=== PATIENT | female | born 1950 | race Caucasian/White ===

== ENCOUNTER 2019-08-27 01:51 | Inpatient (IN) ==
[2019-08-27] MEDS ORDERED: HYDROmorphone INJ 1 MG/ML SYRINGE IV STA ×2 (01:55→02:44)
[2019-08-27] MEDS ORDERED: SODIUM CHLORIDE 0.9% 1000ML 1,000 ML IV ONE ×2 (01:55→02:44)
--- NOTE | 2019-08-27 02:00 | Emergency Department Note ---
Impression & Plan Cecal volvulus, Lactic acidosis, Hypokalemia ED Provider Note Name: AMBER GOLDEN Age: 68 Sex: F Arrives Via: Ambulance Informant: Patient, EMS ED Provider: Quinn Macedo MD Chief Complaint: Abdominal Pain Impression: Lactic Acidosis Cecal Volvulus Hypokalemia Medical Decision Makin yr old female with limited PMH of gerd and gastroparesis who's had no previous surgeries arrives for acute sudden onset diffuse abdominal pain. 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 Dilaudid IV with improvement and taken emergently to CT. CT reveals acute Cecal Volvulus with concerns for early ischemia which is further concerning given elevated lactic acid and the amount of pain she is having. Given further IV dilaudid and fluids and Gen Surg consulted who were shortly at bedside. She was kept comfortable while awaiting OR team and further hydration and IV K given for repletion of mild hypokalemia. I will note EKG without ischemia and trop normal. Prior Medical Record and Triage/Nursing Notes reviewed by Me Additional history obtained from daughter/ Differentials:SBO, Perforated Viscus, Diverticulitis, Volvulus, Pancreatitis, Ischemia, Aortic dissection/rupture, renal colic, appendicitis, as well as other pathologies. Vital Signs: reviewed and remarkable for HTN Interventions: saline lock, dilaudid IV (multiple doses), Zofran 4mg IV, NSS bolus, Potassium 20meq IV, Labs:Reviewed and remarkable for elevated lactate Imaging:[facility] Radiologist interpretation reviewed by me: CT abdo pelv w iv contrast, acute cecal volvulus EKG:Per My Interpretation: Indication Abdominal pain: Sinus Teo 57 bpm, qtc 426. No Ectopy. No Ischemia. No previous for comparison Cardiac/Tele Monitoring: Cardiac Monitoring: An Order was placed for continuous cardiac monitoring. The monitor shows a rate of 70 with a normal sinus rhythm. Consults:Dr Castaneda Gen Surg - will take to OR Plan: Disposition:Taken to OR Referred to: PCP Condition: Fair Blood pressure:Elevated - [place] to be Situational. Prescriptions:none PDMP: n/a History of Present Illness:68 / F arrives for evaluation of abdominal pain. 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 Radiates throughout abdomen, to back and to epigastrium. Associated nausea and vomiting. No diarrhea. Last BM 2 days ago, normal. No fevers, chills, cp, sob, urinary symptoms, bowel changes, leg pain/swelling, rashes, headache, neck pain nor ot her symptoms. Asa, Fentanyl IV and Zofran IV by EMS without improvement. History gastroparesis though never had symptoms like this before. No previous abdominal surgeries. No recent trauma. Movement makes worse, nothing makes pain better. Admits increased stress today though nothing else out of ordinary. ROS: See above HPI for pertinent positives & negatives. A total of 10 systems reviewed and were otherwise negative. Past Medical History:Gastroparesis Past Surgical History:None Family History:Father Pancreatic Cancer, Mother Diverticulitis Social History:Retired, , non-smoker, occassional etoh, no drugs Home Medications:none Allergies:pnc, bactrim Vitals:Blood Pressure: 179/109, Pulse 67, RR 18, T 36.4C, O2 100% on RA Physical Exam: GENERAL: Patient is very uncomfortable appearing and in moderate distress. EYES: No scleral icterus, unremarkable pupils. ENT: Mucous membranes moist, no nasal congestion. NECK: No masses appreciated, nomeningismus, trachea is midline. RESPIRATORY: No dyspnea. Clear to auscultation and equal bilaterally. No wheeze, no rhonchi. CARDIOVASCULAR: Regular rate and rhythm.No murmurs, rubs, gallops appreciated. GASTROINTESTINAL: Diffuse mid TTP, otherwise Abdomen soft.Bowel sounds positive.No masses appreciated. BACK: No midline tenderness, no CVA tenderness EXTREMITIES: Normal motion all extremities, no cyanosis, no edema. NEUROLOGIC: Alert and oriented, no acute motor or sensory deficits, no focal weakness, cranial nerves grossly intact. SKIN: No rash, no jaundice, no diaphoresis. PSYCH: Appropriate GCS: 15 ED Course: Times/Reassessments: Multiple evals, discussed with /daughter, gradually improving pain with multiple iv narcotics Quinn Macedo MD Past Med/Surg History Medical History (Updated 08/27/19 @ 05:47 by Marino Dhaliwal MD) Cecal volvulus (Acute) Gastroparesis GERD (gastroesophageal reflux disease) [place] (hard of hearing) wears bilateral hearing aids Hypokalemia Surgical History S/P cataract extraction bilateral S/P tonsillectomy Family History Other Diverticulitis Social History (Updated 08/27/19 @ 04:00 by Mahamed Castaneda MD) Feels Safe at Home: Yes Smoking Status: Never smoker Hx Alcohol Use: Yes (once per week) Allergies Allergies Allergy/AdvReac Type Severity Reaction Status Date / Time Penicillins Allergy Mild Rash Unverified 08/27/19 02:42 sulfamethoxazole Allergy Hallucinati Unverified 08/27/19 02:42 [From Bactrim] ng trimethoprim [From Bactrim] Allergy Hallucinati Unverified 08/27/19 02:42 ng Home Meds Home Medications Medication Instructions Recorded Confirmed linaclotide [Linzess] 72 mcg PO DAILY 08/27/19 08/27/19 omeprazole 20 mg PO DAILY 08/27/19 08/27/19 Results & Data (ED) Vital Signs Vital Signs - 24 hr 08/27/19 02:02 08/27/19 02:05 08/27/19 02:30 Temperature 36.4 C L Temperature Source Oral Pulse Rate 65 67 57 L Pulse Rate from SpO2 Sensor 63 58 L Pulse Rhythm Regular Pulse Strength Normal Respiratory Rate 25 H 18 22 Respiratory Effort / Characteristics Non-Labored Spontaneous Respiratory Depth Normal Respiratory Pattern Regular Blood Pressure 179/109 H 179/109 H 167/119 H Blood Pressure Mean 131 132 145 Blood Pressure Position Lying Pulse Oximetry 100 100 100 Oxygen Delivery Method Room Air Sepsis Recent Fever Within 48 Hours No Sepsis New/Unexplained Change in Mental Status No Sepsis Action Taken by Nursing No Action Required Oxygen Flow Rate - Titration Pulse Oximetry Post Tiitration 08/27/19 03:00 08/27/19 03:12 08/27/19 03:30 Temperature Temperature Source Pulse Rate 65 71 Pulse Rate from SpO2 Sensor 62 66 Pulse Rhythm Pulse Strength Respiratory Rate 20 14 Respiratory Effort / Characteristics Respiratory Depth Respiratory Pattern Blood Pressure 187/92 H 170/86 H Blood Pressure Mean 108 107 Blood Pressure Position Pulse Oximetry 99 82 L 100 Oxygen Delivery Method Room Air Sepsis Recent Fever Within 48 Hours Sepsis New/Unexplained Change in Mental Status Sepsis Action Taken by Nursing Oxygen Flow Rate - Titration 2 Pulse Oximetry Post Tiitration 99 08/27/19 04:01 08/27/19 04:30 08/27/19 05:00 Temperature Temperature Source Pulse Rate 63 57 L 60 Pulse Rate from SpO2 Sensor 65 57 L 61 Pulse Rhythm Pulse Strength Respiratory Rate 20 18 15 Respiratory Effort / Characteristics Respiratory Depth Respiratory Pattern Blood Pressure 158/78 H 151/86 H 176/82 H Blood Pressure Mean 110 106 101 Blood Pressure Position Pulse Oximetry 98 100 99 Oxygen Delivery Method Sepsis Recent Fever Within 48 Hours Sepsis New/Unexplained Change in Mental Status Sepsis Action Taken by Nursing Oxygen Flow Rate - Titration Pulse Oximetry Post Tiitration Laboratory Data Result diagrams: 08/27/19 01:50 08/27/19 01:50 Lab Results 08/27/19 08/27/19 08/27/19 Range/Units 01:50 01:50 01:50 WBC 8.72 (4.8-10.8) K/uL RBC 4.11 L (4.2-5.4) M/uL Hgb 12.2 (12.0-16.0) g/dL POC Hgb (12.0-16.0) g/dl Hct 37.0 (37-47) % POC Hct (37-47) % MCV 90.0 (80-100) fL MCH 29.7 (25-34) pg MCHC 33.0 (32-36) g/dL RDW Std Deviation 42.8 (36.4-46.3) fL RDW Coeff of Muna 13.0 (11.5-14.5) % Plt Count 343 (130-400) K/uL MPV 9.5 (7.4-10.4) fL Immature Gran % (Auto) 0.2 % Neut % (Auto) 49.9 % Lymph % (Auto) 41.2 % [place] % (Auto) 6.0 % Eos % (Auto) 2.4 % Baso % (Auto) 0.3 % Immature Gran # (Auto) 0.02 (0.00-0.02) K/uL Neut # (Auto) 4.35 (1.4-6.5) K/uL Lymph # (Auto) 3.59 H (1.2-3.4) K/uL [place] # (Auto) 0.52 (0.11-0.59) K/uL Eos # (Auto) 0.21 (0-0.5) K/uL Baso # (Auto) 0.03 (0-0.2) K/uL PT 11.0 (9.0-12.0) Seconds INR 1.0 (0.9-1.1) APTT 22.5 (21.0-31.0) Seconds PTT Ratio 0.8 POC Sodium (135-144) mmol/L Sodium 142 (136-145) mmol/L POC Potassium (3.3-5.0) mmol/L Potassium 2.8 L (3.5-5.1) mmol/L POC Chloride (101-112) mmol/L Chloride 107 (98-107) mmol/L Carbon Dioxide 23 (21-32) mmol/L POC Total CO2 (24-31) mmol/L Anion Gap 12.0 H (3-11) POC Anion Gap (16-25) mmol/L POC BUN (7-18) mg/dl BUN 16 (7-18) mg/dl Creatinine 0.98 (0.6-1.2) mg/dl POC Creatinine (0.6-1.3) mg/dl Est Cr Clr Drug Dosing 53.9 ml/min Est GFR ( Amer) 67.7 Est GFR (Non-Af Amer) 58.4 BUN/Creatinine Ratio 16.4 (10-20) Glucose 179 H (70-99) mg/dl POC Glucose (other) (70-99) mg/dl POC Lactic Acid Dwight (0.90-1.70) mmol/L Calcium 9.8 (8.5-10.1) mg/dl POC Ioniz Calcium Janet (1.12-1.32) mmol/l Total Bilirubin 0.4 (0.2-1) mg/dl Direct Bilirubin < 0.1 (0-0.2) mg/dl AST 23 (15-37) U/L ALT 29 (12-78) U/L Alkaline Phosphatase 84 (45-117) U/L Troponin I < 0.015 (0-0.045) ng/ml Total Protein 7.9 (6.4-8.2) gm/dl Albumin 4.2 (3.4-5.0) gm/dl Lipase 210 (73-393) U/L 08/27/19 08/27/19 Range/Units 01:57 02:43 WBC (4.8-10.8) K/uL RBC (4.2-5.4) M/uL Hgb (12.0-16.0) g/dL POC Hgb 12.6 (12.0-16.0) g/dl Hct (37-47) % POC Hct 37 (37-47) % MCV (80-100) fL MCH (25-34) pg MCHC (32-36) g/dL RDW Std Deviation (36.4-46.3) fL RDW Coeff of Muna (11.5-14.5) % Plt Count (130-400) K/uL MPV (7.4-10.4) fL Immature Gran % (Auto) % Neut % (Auto) % Lymph % (Auto) % [place] % (Auto) % Eos % (Auto) % Baso % (Auto) % Immature Gran # (Auto) (0.00-0.02) K/uL Neut # (Auto) (1.4-6.5) K/uL Lymph # (Auto) (1.2-3.4) K/uL [place] # (Auto) (0.11-0.59) K/uL Eos # (Auto) (0-0.5) K/uL Baso # (Auto) (0-0.2) K/uL PT (9.0-12.0) Seconds INR (0.9-1.1) APTT (21.0-31.0) Seconds PTT Ratio POC Sodium 141 (135-144) mmol/L Sodium (136-145) mmol/L POC Potassium 2.7 L (3.3-5.0) mmol/L Potassium (3.5-5.1) mmol/L POC Chloride 105 (101-112) mmol/L Chloride (98-107) mmol/L Carbon Dioxide (21-32) mmol/L POC Total CO2 20 L (24-31) mmol/L Anion Gap (3-11) POC Anion Gap 20.0 (16-25) mmol/L POC BUN 15 (7-18) mg/dl BUN (7-18) mg/dl Creatinine (0.6-1.2) mg/dl POC Creatinine 0.6 (0.6-1.3) mg/dl Est Cr Clr Drug Dosing ml/min Est GFR ( Amer) Est GFR (Non-Af Amer) BUN/Creatinine Ratio (10-20) Glucose (70-99) mg/dl POC Glucose (other) 182 H (70-99) mg/dl POC Lactic Acid Dwight 3.37 H (0.90-1.70) mmol/L Calcium (8.5-10.1) mg/dl POC Ioniz Calcium Janet 1.17 (1.12-1.32) mmol/l Total Bilirubin (0.2-1) mg/dl Direct Bilirubin (0-0.2) mg/dl AST (15-37) U/L ALT (12-78) U/L Alkaline Phosphatase (45-117) U/L Troponin I (0-0.045) ng/ml Total Protein (6.4-8.2) gm/dl Albumin (3.4-5.0) gm/dl Lipase (73-393) U/L Administered Medications Potassium Chloride (K Carlos / Wtr) 10 meq in 100 mls @ 100 mls/hr IV Q1H CECILE Stop: 08/27/19 06:14 Last Admin: 08/27/19 05:22 Dose: 100 mls/hr Documented by: [id number] Infusion: 08/27/19 05:22 Dose: 100 mls/hr Documented by: [id number] Admin: 08/27/19 04:25 Dose: 100 mls/hr Documented by: [id number] Sodium Chloride (Nss 1000ml) 1,000 mls @ 125 mls/hr IV .Q8H CECILE Stop: 09/26/19 04:14 Last Admin: 08/27/19 04:28 Dose: 125 mls/hr Documented by: [id number] Ioversol (Optiray 320 100ml) 93 ml IV ONCE PRN PRN Reason: Interaction Checking Stop: 08/31/19 02:27 Last Admin: 08/27/19 02:28 Dose: 93 ml Documented by: [id number] Discontinued Medications Hydromorphone HCl (Dilaudid) 1 mg IV NOW STA Stop: 08/27/19 01:56 Last Admin: 08/27/19 02:05 Dose: 1 mg Documented by: [id number] Hydromorphone HCl (Dilaudid) 1 mg IV NOW STA Stop: 08/27/19 02:45 Last Admin: 08/27/19 02:55 Dose: 1 mg Documented by: [id number] Hydromorphone HCl (Dilaudid) 0.5 mg IV NOW STA Stop: 08/27/19 04:20 Last Admin: 08/27/19 04:24 Dose: 0.5 mg Documented by: [id number] Sodium Chloride (Nss 1000ml) 1,000 mls @ 999 mls/hr IV .Q1H1M ONE Stop: 08/27/19 02:55 Last Infusion: 08/27/19 03:02 Dose: 0 mls/hr Documented by: [id number] Admin: 08/27/19 02:05 Dose: 999 mls/hr Documented by: [id number] Sodium Chloride (Nss 1000ml) 1,000 mls @ 999 mls/hr IV .Q1H1M ONE Stop: 08/27/19 03:44 Last Infusion: 08/27/19 04:25 Dose: 0 mls/hr Documented by: [id number] Admin: 08/27/19 02:55 Dose: 999 mls/hr Documented by: [id number] Ondansetron HCl (Zofran) 4 mg IV NOW STA Stop: 08/27/19 02:45 Last Admin: 08/27/19 02:55 Dose: 4 mg Documented by: [id number] Ondansetron HCl (Zofran) 4 mg IV NOW STA Stop: 08/27/19 04:20 Last Admin: 08/27/19 04:23 Dose: 4 mg Documented by: [id number] Discharge Plan Visit Data *Final* Discharge Date/Time: 08/27/19 05:28 Chief Complaint: Abdominal Pain Stated Complaint: Abdominal Pain ED Provider: Quinn Macedo Discharge Problem: Cecal volvulus, Lactic acidosis, Hypokalemia Patient Disposition: Still a Patient Discharge Instructions Interventions: ED Discharge Assessment Last Done: 08/27/19 05:28
[2019-08-27 02:07] LABS: Basophils # (auto) 0.03 K/uL (0-0.2); Basophils % (auto) 0.3 %; Eosinophils # (auto) 0.21 K/uL (0-0.5); Eosinophils % (auto) 2.4 %; Hemoglobin 12.2 g/dL (12.0-16.0); Immature Granulocytes # (auto) 0.02 K/uL (0.00-0.02); Immature Granulocytes % (auto) 0.2 %; Lymphocytes # (auto) 3.59 K/uL (1.2-3.4); Lymphocytes % (auto) 41.2 %; Mean Corpuscular Hemoglobin 29.7 pg (25-34); Mean Platelet Volume 9.5 fL (7.4-10.4); Monocytes # (auto) 0.52 K/uL (0.11-0.59); Neutrophils # (auto) 4.35 K/uL (1.4-6.5); Neutrophils % (auto) 49.9 %; Platelet Count 343 K/uL (130-400); RDW Standard Deviation 42.8 fL (36.4-46.3); Red Blood Count 4.11 M/uL (4.2-5.4); White Blood Count 8.72 K/uL (4.8-10.8)
[2019-08-27 02:09] LABS: iSTAT Creatinine 0.6 mg/dl (0.6-1.3); iSTAT Hemoglobin 12.6 g/dl (12.0-16.0); iSTAT Ionized Calcium 1.17 mmol/l (1.12-1.32); iSTAT Potassium 2.7 mmol/L (3.3-5.0)
[2019-08-27 02:25] LABS: Albumin Level 4.2 gm/dl (3.4-5.0); BUN Creatinine Ratio 16.4 (10-20); Bilirubin Direct < 0.1 mg/dl (0-0.2); Blood Urea Nitrogen 16 mg/dl (7-18); Calcium 9.8 mg/dl (8.5-10.1); Carbon Dioxide 23 mmol/L (21-32); Chloride 107 mmol/L (98-107); Creatinine Clr Calc Pharmacy 53.9 ml/min; Est GFR (African American) 67.7; Est GFR (Non-African American) 58.4; Glucose 179 mg/dl (70-99); Lipase 210 U/L (73-393); Potassium 2.8 mmol/L (3.5-5.1); Sodium 142 mmol/L (136-145)
[2019-08-27] MEDS ORDERED: IOVERSOL 100ml IV PRN (02:28)
[2019-08-27 02:30] LABS: Alanine Aminotransferase 29 U/L (12-78); Alkaline Phosphatase 84 U/L (45-117); Aspartate Aminotransferase 23 U/L (15-37); Bilirubin,Total 0.4 mg/dl (0.2-1); Total Protein 7.9 gm/dl (6.4-8.2); Troponin I < 0.015 ng/ml (0-0.045)
[2019-08-27] MEDS ORDERED: ONDANSETRON INJ 2 MG/ML 2 ML VIAL IV STA ×2 (02:44→04:19)
[2019-08-27] MEDS ORDERED: SODIUM CHLORIDE 0.9% 1000ML 1,000 ML IV SCH (04:15)
[2019-08-27] MEDS ORDERED: HYDROmorphone INJ 0.5 MG/0.5 ML SYR IV STA (04:19)
[2019-08-27] MEDS: POTASSIUM CHLORIDE / WTR 10 MEQ/100 ML PLCT IV SCH ×2 (04:25→05:22)
--- NOTE | 2019-08-27 04:41 | History & Physical Report ---
Date of Service August 27, 2019 Assessment & Plan (1) Cecal volvulus: This patient has abdominal pain with nausea and vomiting. Her abdomen is distended and tender. CT scan demonstrates the cecum in the right upper quadrant with swirling and intra-abdominal fluid with an elevated lactate level which is all concerning for cecal volvulus with ischemia. Her white blood cell count is normal. Her abdomen is tender and firm consistent with peritonitis. I have recommended exploratory laparotomy with right colectomy for the cecal volvulus. I explained the procedure to the patient. Her daughter was present as well. I explained the possible complications and answered her questions. She has signed a consent form. History of Present Illness Chief Complaint: Abdominal pain with nausea and vomiting Primary Care Provider: Marguerite Gonzalez DO This is a 68-year-old female who presented to the emergency room after the fairly acute onset of abdominal pain followed by nausea and vomiting. The patient states that she has a history of gastroparesis and yesterday evening had some mild epigastric discomfort. She is on an H2 luis chronically. At 11 PM last night she developed rather acute onset of more severe sharp abdominal pain. This was followed by multiple episodes of vomiting. She had diaphoresis with the vomiting. The pain persisted and she was brought to the emergency room by ambulance. While here she continued to have severe abdominal pain generalized throughout. There was no place to predominated. The nausea persisted. She normally has no issues with passing her bowels. She had no melena or hematochezia. She is never had pain like this before. Movement exacerbates the pain. She has had no dysuria or hematuria. CT scan of the abdomen and pelvis revealed cecal volvulus. Allergies Allergy/AdvReac Type Severity Reaction Status Date / Time Penicillins Allergy Mild Rash Unverified 08/27/19 02:42 sulfamethoxazole Allergy Hallucinati Unverified 08/27/19 02:42 [From Bactrim] ng trimethoprim [From Bactrim] Allergy Hallucinati Unverified 08/27/19 02:42 ng Home Medications Home Medications Medication Instructions Recorded Confirmed Type linaclotide [Linzess] 72 mcg PO DAILY 08/27/19 08/27/19 History omeprazole 20 mg PO DAILY 08/27/19 08/27/19 History Past Med/Surg History Medical History (Updated 08/27/19 @ 04:43 by Mahamed Castaneda MD) Cecal volvulus Surgical History (Updated 08/27/19 @ 03:59 by Mahamed Castaneda MD) S/P cataract extraction bilateral S/P tonsillectomy Social History (Updated 08/27/19 @ 04:00 by Mahamed Castaneda MD) Feels Safe at Home: Yes Smoking Status: Never smoker Hx Alcohol Use: Yes (once per week) Review of Systems Review of Systems: All systems reviewed & are unremarkable except as noted in HPI & below Physical Exam Constitutional: + ill appearing Neck: trachea midline Respiratory: normal respiratory effort, lungs clear to auscultation Cardiovascular: Rate/Rhythm: regular rate and regular rhythm Gastrointestinal (Abdomen): Inspection/Auscultation: + abdomen distended (Mild) and normal bowel sounds Percussion/Palpation: + abdomen tender (Throughout to moderate palpation) Abdomen is firm but not rigid Skin: no rashes, warm and dry Lymphatic: no cervical lymphadenopathy Results & Data Results & Data ([facility]) Vital Signs (Past 12 Hours) Vital Signs Temp Pulse Resp BP Pulse Ox 08/27/19 03:30 71 14 170/86 H 100 08/27/19 03:12 82 L 08/27/19 03:00 65 20 187/92 H 99 08/27/19 02:30 57 L 22 167/119 H 100 08/27/19 02:05 36.4 C L 67 18 179/109 H 100 08/27/19 02:02 65 25 H 179/109 H 100 Laboratory Results 08/27/19 08/27/19 08/27/19 Range/Units 02:43 01:57 01:50 WBC (4.8-10.8) K/uL RBC (4.2-5.4) M/uL Hgb (12.0-16.0) g/dL POC Hgb 12.6 (12.0-16.0) g/dl Hct (37-47) % POC Hct 37 (37-47) % MCV (80-100) fL MCH (25-34) pg MCHC (32-36) g/dL RDW Std Deviation (36.4-46.3) fL RDW Coeff of Muna (11.5-14.5) % Plt Count (130-400) K/uL MPV (7.4-10.4) fL Immature Gran % (Auto) % Neut % (Auto) % Lymph % (Auto) % [place] % (Auto) % Eos % (Auto) % Baso % (Auto) % Immature Gran # (Auto) (0.00-0.02) K/uL Neut # (Auto) (1.4-6.5) K/uL Lymph # (Auto) (1.2-3.4) K/uL [place] # (Auto) (0.11-0.59) K/uL Eos # (Auto) (0-0.5) K/uL Baso # (Auto) (0-0.2) K/uL PT Pending INR Pending APTT Pending PTT Ratio Pending POC Sodium 141 (135-144) mmol/L Sodium (136-145) mmol/L POC Potassium 2.7 L (3.3-5.0) mmol/L Potassium (3.5-5.1) mmol/L POC Chloride 105 (101-112) mmol/L Chloride (98-107) mmol/L Carbon Dioxide (21-32) mmol/L POC Total CO2 20 L (24-31) mmol/L Anion Gap (3-11) POC Anion Gap 20.0 (16-25) mmol/L POC BUN 15 (7-18) mg/dl BUN (7-18) mg/dl Creatinine (0.6-1.2) mg/dl POC Creatinine 0.6 (0.6-1.3) mg/dl Est Cr Clr Drug Dosing ml/min Est GFR ( Amer) Est GFR (Non-Af Amer) BUN/Creatinine Ratio (10-20) Glucose (70-99) mg/dl POC Glucose (other) 182 H (70-99) mg/dl POC Lactic Acid Dwight 3.37 H (0.90-1.70) mmol/L Calcium (8.5-10.1) mg/dl POC Ioniz Calcium Janet 1.17 (1.12-1.32) mmol/l Total Bilirubin (0.2-1) mg/dl Direct Bilirubin (0-0.2) mg/dl AST (15-37) U/L ALT (12-78) U/L Alkaline Phosphatase (45-117) U/L Troponin I (0-0.045) ng/ml Total Protein (6.4-8.2) gm/dl Albumin (3.4-5.0) gm/dl Lipase (73-393) U/L 08/27/19 08/27/19 Range/Units 01:50 01:50 WBC 8.72 (4.8-10.8) K/uL RBC 4.11 L (4.2-5.4) M/uL Hgb 12.2 (12.0-16.0) g/dL POC Hgb (12.0-16.0) g/dl Hct 37.0 (37-47) % POC Hct (37-47) % MCV 90.0 (80-100) fL MCH 29.7 (25-34) pg MCHC 33.0 (32-36) g/dL RDW Std Deviation 42.8 (36.4-46.3) fL RDW Coeff of Muna 13.0 (11.5-14.5) % Plt Count 343 (130-400) K/uL MPV 9.5 (7.4-10.4) fL Immature Gran % (Auto) 0.2 % Neut % (Auto) 49.9 % Lymph % (Auto) 41.2 % [place] % (Auto) 6.0 % Eos % (Auto) 2.4 % Baso % (Auto) 0.3 % Immature Gran # (Auto) 0.02 (0.00-0.02) K/uL Neut # (Auto) 4.35 (1.4-6.5) K/uL Lymph # (Auto) 3.59 H (1.2-3.4) K/uL [place] # (Auto) 0.52 (0.11-0.59) K/uL Eos # (Auto) 0.21 (0-0.5) K/uL Baso # (Auto) 0.03 (0-0.2) K/uL PT INR APTT PTT Ratio POC Sodium (135-144) mmol/L Sodium 142 (136-145) mmol/L POC Potassium (3.3-5.0) mmol/L Potassium 2.8 L (3.5-5.1) mmol/L POC Chloride (101-112) mmol/L Chloride 107 (98-107) mmol/L Carbon Dioxide 23 (21-32) mmol/L POC Total CO2 (24-31) mmol/L Anion Gap 12.0 H (3-11) POC Anion Gap (16-25) mmol/L POC BUN (7-18) mg/dl BUN 16 (7-18) mg/dl Creatinine 0.98 (0.6-1.2) mg/dl POC Creatinine (0.6-1.3) mg/dl Est Cr Clr Drug Dosing 53.9 ml/min Est GFR ( Amer) 67.7 Est GFR (Non-Af Amer) 58.4 BUN/Creatinine Ratio 16.4 (10-20) Glucose 179 H (70-99) mg/dl POC Glucose (other) (70-99) mg/dl POC Lactic Acid Dwight (0.90-1.70) mmol/L Calcium 9.8 (8.5-10.1) mg/dl POC Ioniz Calcium Janet (1.12-1.32) mmol/l Total Bilirubin 0.4 (0.2-1) mg/dl Direct Bilirubin < 0.1 (0-0.2) mg/dl AST 23 (15-37) U/L ALT 29 (12-78) U/L Alkaline Phosphatase 84 (45-117) U/L Troponin I < 0.015 (0-0.045) ng/ml Total Protein 7.9 (6.4-8.2) gm/dl Albumin 4.2 (3.4-5.0) gm/dl Lipase 210 (73-393) U/L Diagnostic Findings CT scan of the abdomen and pelvis reveals the cecum to be located in the left upper quadrant and is dilated at 10.6 cm with swirling of the mesentery in the right lower quadrant consistent with volvulus. There is some fluid in the pelvis. There is no free air and no evidence of pneumatosis
[2019-08-27] MEDS ORDERED: fentaNYL citrate 100 MCG/2 ML VIAL ONE ×2 (05:12→08:30)
[2019-08-27] MEDS ORDERED: PROPOFOL IV EMULSION 10 MG/ML 20 ML VIAL IV ONE (05:12)
[2019-08-27 05:15] LABS: Partial Thromboplastin Ratio 0.8; Partial Thromboplastin Time 22.5 Seconds (21.0-31.0)
[2019-08-27] MEDS ORDERED: SUCCINYLCHOLINE CHLORIDE 20 MG/ML 10 ML VIAL IV ONE (05:17)
[2019-08-27] MEDS ORDERED: ROCURONIUM BROMIDE 10 MG/ML 5 ML VIAL IV ONE (05:18)
[2019-08-27] MEDS ORDERED: LIDOCAINE HCL 2% 2 ML VIAL/AMP(20MG/ML) INFIL ONE (05:20)
[2019-08-27] MEDS ORDERED: PHENYLEPHRINE 100MCG/ML 5ML SYR IV PRN (05:26)
[2019-08-27] MEDS ORDERED: ATROPINE SULFATE 0.1 MG/ML 10ML SYR IV PRN (05:26)
[2019-08-27] MEDS ORDERED: fentaNYL citrate 100 MCG/2 ML VIAL IV PRN (05:26)
[2019-08-27] MEDS ORDERED: ePHEDrine sulfate 50 MG/ML AMP IV PRN (05:26)
[2019-08-27] MEDS ORDERED: ONDANSETRON INJ 2 MG/ML 2 ML VIAL IV PRN (05:26)
[2019-08-27] MEDS ORDERED: HYDROmorphone INJ 1 MG/ML SYRINGE IV PRN (05:26)
[2019-08-27] MEDS ORDERED: LABETALOL HCL IV 5 MG/ML 20ML IV PRN (05:26)
[2019-08-27] MEDS ORDERED: MEPERIDINE HCL 25 MG/ML CARP/VIAL IV PRN (05:26)
--- NOTE | 2019-08-27 05:36 | Anesthesiology Consultation ---
Date of Service August 27, 2019 Patient was not tested for Covid 19. She has no known exposure to Covid 19. She has no cough or fever. A nasogastric was placed in the ER. The patient was found to be hypokalemic. She received 10 mEq of potassium IV in the ER and is currently receiving a second 10 mEq of potassium IV. Assessment & Plan (1) Encounter for pre-operative examination: Chart Review Chart Review: Acceptable Risk for Surgery (emergency surgery) and Patient NOT seen in Pre Admission Testing Consults Requested none History Surgery Operation Date: 08/27/19 05:30 Proposed Procedures p Bowel Resection - Mahamed Castaneda MD Height/Weight Height: 5 ft 8 in Weight: 73.9 kg Allergies Allergy/AdvReac Type Severity Reaction Status Date / Time Penicillins Allergy Mild Rash Unverified 08/27/19 02:42 sulfamethoxazole Allergy Hallucinati Unverified 08/27/19 02:42 [From Bactrim] ng trimethoprim [From Bactrim] Allergy Hallucinati Unverified 08/27/19 02:42 ng Medications Home Medications Medication Instructions Recorded Confirmed Last Taken linaclotide [Linzess] 72 mcg PO DAILY 08/27/19 08/27/19 Unknown omeprazole 20 mg PO DAILY 08/27/19 08/27/19 Unknown Active Medications Generic Name Dose Route Start Last Admin Trade Name Freq PRN Reason Stop Dose Admin Potassium Chloride 10 meq in 100 mls @ 100 mls/hr 08/27/19 04:15 08/27/19 05:22 K Carlos / Wtr IV 08/27/19 06:14 100 mls/hr Q1H CECILE Administration Sodium Chloride 1,000 mls @ 125 mls/hr 08/27/19 04:15 08/27/19 04:28 Nss 1000ml IV 09/26/19 04:14 125 mls/hr .Q8H CECILE Administration Ioversol 93 ml 08/27/19 02:28 08/27/19 02:28 Optiray 320 100ml IV 08/31/19 02:27 93 ml ONCE PRN Administration Interaction Checking NPO Date Last Intake of Fluids: 08/26/19 Time Last Intake of Fluids: 23:00 Last Intake of Fluids Comment: sips of water Date Last Intake of Solids: 08/26/19 Time Last Intake of Solids: 20:00 Last Intake of Solids Comment: small bites of rice pudding Past Medical History Medical History Cecal volvulus (Acute) Gastroparesis GERD (gastroesophageal reflux disease) Hypokalemia Past Family History Family History Other Diverticulitis Past Surgical History Surgical History S/P cataract extraction bilateral S/P tonsillectomy Social History Smoking Status: Never smoker Hx Alcohol Use: Yes (once per week) Physical Exam Vital Signs Last Vital Signs Temp 36.4 C L 08/27/19 02:05 Pulse 60 08/27/19 05:00 Resp 15 08/27/19 05:00 BP 176/82 H 08/27/19 05:00 Pulse Ox 99 08/27/19 05:00 Testing Laboratory Results 08/27/19 01:50 08/27/19 01:50 PT 11.0 Seconds (9.0-12.0) 08/27/19 01:50 INR 1.0 (0.9-1.1) 08/27/19 01:50 APTT 22.5 Seconds (21.0-31.0) 08/27/19 01:50 08/27/19 01:57 POC Glucose (other) 182 H Electrocardiogram Date: 08/27/19 Findings: + NSR @, + NSST changes (nonspecific lateral T wave) and + poor R wave progression (probable normal variant)
[2019-08-27] MEDS ORDERED: DEXAMETHASONE SOD INJ 4 MG/ML VIAL ONE (05:56)
[2019-08-27] MEDS ORDERED: ONDANSETRON INJ 2 MG/ML 2 ML VIAL ONE (05:57)
[2019-08-27] MEDS ORDERED: cefOXitin 2,000 MG in DEXTROSE 5% 50 ML IV STA (06:28)
[2019-08-27] MEDS ORDERED: ePHEDrine sulfate 50 MG/ML SYR ONE (06:29)
[2019-08-27] MEDS ORDERED: GLYCOPYRROLATE 0.2 MG/ML VIAL ONE (07:28)
[2019-08-27] MEDS ORDERED: NEOSTIGMINE METHYLSULFATE 5 MG/5 ML SYR ONE (07:28)
--- NOTE | 2019-08-27 07:35 | CT Scan Report ---
CT abd pelvis IV con only CT DOSE: 324.59 mGy.cm HISTORY: Pain diffuse sudden onset abdominal pain TECHNIQUE: Multiaxial CT images of the abdomen and pelvis were performed following the use of intrave nous contrast. A dose lowering technique was utilized adhering to the principles of ALARA. COMPARISON STUDY: 12/31/2017 FINDINGS: Lung bases are clear. The liver spleen and kidneys are unremarkable. The cecum is distended to 10 cm and is located in the left mid and upper abdominal regions. There is a small amount of free fluid within the left paracolic gutter region. There is a vascular swirling pattern in the right lower quadrant suggest the possibility of cecal vol vulus. No evidence for pneumatosis or free air. The bladder is midline. The remaining bowel pattern is consi dered nonobstructive. IMPRESSION: 1. 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 2. The cecum is located in the left mid and upper abdominal region and has a maximum diameter 10 cm. 3. Small amount of surrounding free fluid most likely reactive. 4. The remainder of the bowel is located appropriately within the abdomen and pelvis. ACT 112: Negative or not required by law. The above report was generated using voice recognition software. It may contain grammatical, syntax or spelling errors. Electronically signed by: Mahamed Eckert M.D. 08/27/2019 7:33 AM
--- NOTE | 2019-08-27 08:07 | Post Operative Brief Note ---
Immediate Post Op Note v1 Date of Surgery August 27, 2019 Pre & Post Diagnosis Operation Date: 08/27/19 05:30 Pre-Op Diagnosis: Abdominal Pain Post-Op Diagnosis: Abdominal Pain I identified the patient and participated in the time-out.: Yes Procedure Operation Date: 08/27/19 05:30 Actual Procedures p Bowel Resection(Not Applicable) - Mahamed Castaneda MD Surgeon Mahamed Castaneda MD Language Specialist None Estimated Blood Loss 25 Findings Consistent with Post-Op Diagnosis Drains Tanner Catheter
--- NOTE | 2019-08-27 08:45 | Operative Report (OR) ---
DATE OF OPERATION: 08/27/2019 PREOPERATIVE DIAGNOSIS: Cecal volvulus. POSTOPERATIVE DIAGNOSIS: Cecal volvulus. PROCEDURE: Right hemicolectomy. SURGEON: Mahamed Castaneda MD. FINDINGS: The mesentery of the right colon was redundant. The transverse colon and right colon were redundant in and of themselves. The left colon was attached to the left abdominal wall. There was no redundancy to the sigmoid. The small bowel was decompressed and appeared normal. The liver was of normal size and contour. The stomach was normal as well. The NG tube was in good position. TECHNIQUE: The patient was given a general anesthetic and the area was prepped and draped in the usual sterile fashion. A vertical midline incision was made from above the umbilicus to below the umbilicus, carried down through the subcutaneous tissue to the fascia, which was opened in the midline. The peritoneum was identified, incised and the abdomen was entered. The opening in the layers was carried along the length of the skin incision. Exploration of the abdomen was undertaken with findings as above. The mesentery of the cecum was twisted. In order to easily identify the course of the right colon, I had to de-rotate the mesentery that was done with ease. I then the colon from the lateral abdominal wall by dividing it at the line of Toldt. The mesentery was quite redundant. I chose sites for the resection, which included about 4-5 cm of terminal ileum along with the right and proximal transverse colon using the right branch of the middle colic artery to preserve. The mesentery was away from the bowel at each of those sites and the bowel was divided using the HERBIE stapler. The mesentery was then divided using the LigaSure and clamp-clamp, divide, and ligate technique for the major vessels ligating with 2-0 silk ties. The specimen was passed off. The area of dissection was inspected for bleeding and none was seen. The anastomosis was then performed. The bowel dudley were approximated to each other in a functional end-to-end fashion using 3-0 silk suture. Those were interrupted. The antimesenteric border of each staple line was removed and a limb of the HERBIE was placed into each of the bowel lumens. The stapler was fired. The anastomosis was felt to be adequate and there was no bleeding. The common opening was closed with a TA stapler. Additional stay sutures on the anterior side of the staple line was reinforced with a 3-0 Vicryl silk suture. One was placed in the crotch of the anastomosis. The mesentery was closed with a running 3-0 Vicryl. There was some oozing from one of the veins in the mesentery and this was ligated with 2-0 Vicryl [id number] sutures. There was no further bleeding. The areas of dissection were again inspected for bleeding and none was seen. The bowel was placed back into its anatomic position. There was very little omentum to bring over the anterior surface of the bowel. The abdomen was then irrigated with a copious amount of saline solution and that was removed. There was a small amount of oozing from the subcutaneous space that was controlled with cautery. The fascia was closed with a running #1 PDS. The skin was closed with amber. The estimated blood loss was 25 mL. Sponge, needle and instrument counts were correct prior to closure. The patient tolerated the surgical procedure without complication and was transferred to recovery. I attest to the content of the Intraoperative Record and any orders documented therein. Any exception s are noted below.
--- NOTE | 2019-08-27 09:01 | Anesthesiology Progress Note ---
Date of Service August 27, 2019 Anesthesia Post Procedure Vital Signs Vital Signs: Temp Pulse Pulse Resp BP BP Pulse Ox 08/27/19 08:55 36.5 C 59 L 16 108/62 100 08/27/19 08:45 55 L 10 L 119/61 99 08/27/19 08:38 36.2 C L 62 16 118/71 100 08/27/19 05:00 60 15 176/82 H 99 08/27/19 04:30 57 L 18 151/86 H 100 08/27/19 04:01 63 20 158/78 H 98 08/27/19 03:30 71 14 170/86 H 100 08/27/19 03:12 82 L 08/27/19 03:00 65 20 187/92 H 99 08/27/19 02:30 57 L 22 167/119 H 100 08/27/19 02:05 36.4 C L 67 18 179/109 H 100 08/27/19 02:02 65 25 H 179/109 H 100 Pain Intensity Abdomen: Pain Intensity: 2 Transfer of Care Handoff Completed per policy Notes Mental Status: alert / awake / arousable and participated in evaluation Patient Amnestic to Procedure: Yes Nausea / Vomiting: adequately controlled Pain: adequately controlled Airway Patency, RR, SpO2: stable & adequate BP & HR: stable & adequate Hydration State: stable & adequate Anesthetic Complications: no major complications apparent and Pt Satisfied with anesthetic care
[2019-08-27] MEDS: D5W AND 1/2NSS + 20MEQ KCL 20 MEQ/1,000 ML BAG IV SCH ×2 (10:57→20:25)
[2019-08-27] MEDS: PANTOprazole 40 MG in SYRINGE 0 ML IV SCH (10:59)
[2019-08-27] MEDS: MoRPHine SULFATE 4 MG/ML 1 ML CARP\\VIAL IV PRN ×4 (11:07→22:12)
[2019-08-27] MEDS: ONDANSETRON INJ 2 MG/ML 2 ML VIAL IV PRN ×2 (11:07→18:01)
--- NOTE | 2019-08-27 14:30 | Electrocardiogram Report ---
Test Reason : Blood Pressure : / mmHG Vent. Rate : 057 BPM Atrial Rate : 057 BPM P-R Int : 192 ms QRS Dur : 100 ms QT Int : 438 ms P-R-T Axes : 058 051 032 degrees QTc Int : 426 ms Poor data quality, interpretation may be adversely affected Sinus bradycardia Nonspecific ST and T wave abnormality Abnormal ECG No previous ECGs available Confirmed by Ryan Mathews ([id number]) on 08/27/2019 2:30:06 PM Referred By: REFERRED SELF Confirmed By:Ryan Mathews
[2019-08-27 15:10] LABS: BUN Creatinine Ratio 13.1 (10-20); Calcium 8.2 mg/dl (8.5-10.1); Creatinine Clr Calc Pharmacy 63.6 ml/min; Est GFR (African American) 82.8; Est GFR (Non-African American) 71.4
[2019-08-28 00:45] LABS: Appearance Urine Clear (Clear); Bilirubin Urine Negative (Negative); Blood Urine Negative (Negative); Color Urine Yellow; Glucose Urine UA Negative (Negative); Ketones Urine Negative (Negative); Leukocyte Esterase Urine Negative (Negative); Nitrite Urine Negative (Negative); Protein Urine Negative (Negative); Specific Gravity Urine 1.021 (1.000-1.030); Urobilinogen Urine Negative (Negative)
[2019-08-28] MEDS: ONDANSETRON INJ 2 MG/ML 2 ML VIAL IV PRN ×3 (02:54→15:34)
[2019-08-28] MEDS: D5W AND 1/2NSS + 20MEQ KCL 20 MEQ/1,000 ML BAG IV SCH ×3 (05:45→23:59)
[2019-08-28 07:01] LABS: Hematocrit (blood only) 36.8 % (37-47); Hemoglobin 11.5 g/dL (12.0-16.0); Immature Granulocytes # (auto) 0.03 K/uL (0.00-0.02); Immature Granulocytes % (auto) 0.2 %; Lymphocytes # (auto) 0.36 K/uL (1.2-3.4); Mean Corpuscular Hemoglobin 29.3 pg (25-34); Mean Corpuscular Hgb Conc 31.3 g/dL (32-36); Mean Corpuscular Volume 93.6 fL (80-100); Mean Platelet Volume 9.3 fL (7.4-10.4); Monocytes # (auto) 0.53 K/uL (0.11-0.59); Monocytes % (auto) 4.3 %; Neutrophils # (auto) 11.27 K/uL (1.4-6.5); Neutrophils % (auto) 92.5 %; Platelet Count 279 K/uL (130-400); RDW Coefficient of Variation 13.5 % (11.5-14.5); RDW Standard Deviation 46.1 fL (36.4-46.3); Red Blood Count 3.93 M/uL (4.2-5.4); White Blood Count 12.19 K/uL (4.8-10.8)
[2019-08-28 07:31] LABS: BUN Creatinine Ratio 16.7 (10-20); Calcium 8.5 mg/dl (8.5-10.1); Est GFR (African American) 108.2; Est GFR (Non-African American) 93.4; Potassium 4.1 mmol/L (3.5-5.1)
[2019-08-28] MEDS: ENOXAPARIN INJ 30 MG/0.3 ML SYR SQ SCH (08:29)
[2019-08-28] MEDS: MoRPHine SULFATE 4 MG/ML 1 ML CARP\\VIAL IV PRN ×2 (08:29→15:38)
[2019-08-28] MEDS: PANTOprazole 40 MG in SYRINGE 0 ML IV SCH (09:59)
[2019-08-28] MEDS ORDERED: OXYCODONE/ACETAMINOPHEN 5mg/325mg TAB PO PRN ×2 (12:30)
--- NOTE | 2019-08-28 15:44 | Surgery Progress Note ---
Date of Service August 28, 2019 Assessment & Plan (1) Cecal volvulus: POD # 1 s/p exploratory laparotomy right hemicolectomy -AVSS - adequate urine output - moderate post op pain, controlled - minimal NGT output - no return of bowel function yet Plan: Discontinue NGT, may have ice chips Discontinue Tanner OOB to chair/ambulate Start PO Percocet and Tylenol prn pain, Continue IV Morphine as needed Continue IV Zofran SCDs, Incentive PT/OT consults repeat am labs Dr. Castaneda has seen and examined pt, agrees with above. Subjective feeling rough, pain at incision site, NGT uncomfortable no nausea pain controlled with Morphine got out of bed last night Physical Exam Constitutional: WD/WN, vitals as above not ill appearing Respiratory: normal respiratory effort Gastrointestinal (Abdomen): Inspection/Auscultation: abdomen not distended Percussion/Palpation: + abdomen tender (midline incision) and abdomen soft; no guarding and abdomen not rigid Skin: no rashes, warm and dry + incision (covered with dry dressing) Psychiatric: A+Ox3, euthymic affect Results & Data Vital Signs (Past 12 Hours) Vital Signs Temp Pulse Resp BP Pulse Ox 08/28/19 15:10 37.2 C 84 20 161/75 H 98 08/28/19 12:00 36.9 C 82 16 150/84 H 97 08/28/19 07:22 36.8 C 83 16 150/81 H 98 Laboratory Results 08/28/19 08/28/19 08/27/19 Range/Units 06:38 06:38 11:25 WBC 12.19 H (4.8-10.8) K/uL RBC 3.93 L (4.2-5.4) M/uL Hgb 11.5 L (12.0-16.0) g/dL Hct 36.8 L (37-47) % MCV 93.6 (80-100) fL MCH 29.3 (25-34) pg MCHC 31.3 L (32-36) g/dL RDW Std Deviation 46.1 (36.4-46.3) fL RDW Coeff of Muna 13.5 (11.5-14.5) % Plt Count 279 (130-400) K/uL MPV 9.3 (7.4-10.4) fL Immature Gran % (Auto) 0.2 % Neut % (Auto) 92.5 % Lymph % (Auto) 3.0 % [place] % (Auto) 4.3 % Eos % (Auto) 0.0 % Baso % (Auto) 0.0 % Immature Gran # (Auto) 0.03 H (0.00-0.02) K/uL Neut # (Auto) 11.27 H (1.4-6.5) K/uL Lymph # (Auto) 0.36 L (1.2-3.4) K/uL [place] # (Auto) 0.53 (0.11-0.59) K/uL Eos # (Auto) 0.00 (0-0.5) K/uL Baso # (Auto) 0.00 (0-0.2) K/uL Sodium 137 (136-145) mmol/L Potassium 4.1 (3.5-5.1) mmol/L Chloride 105 (98-107) mmol/L Carbon Dioxide 27 (21-32) mmol/L Anion Gap 5.0 (3-11) BUN 10 (7-18) mg/dl Creatinine 0.58 L (0.6-1.2) mg/dl Est Cr Clr Drug Dosing 91.0 ml/min Est GFR ( Amer) 108.2 Est GFR (Non-Af Amer) 93.4 BUN/Creatinine Ratio 16.7 (10-20) Glucose 156 H (70-99) mg/dl Calcium 8.5 (8.5-10.1) mg/dl Urine Color Yellow Urine Appearance Clear (Clear) Urine pH 6.0 (4.5-7.5) Ur Specific [place] 1.021 (1.000-1.030) Urine Protein Negative (Negative) Urine Glucose (UA) Negative (Negative) Urine Ketones Negative (Negative) Urine Blood Negative (Negative) Urine Nitrite Negative (Negative) Urine Bilirubin Negative (Negative) Urine Urobilinogen Negative (Negative) Ur Leukocyte Esterase Negative (Negative)
[2019-08-29] MEDS: ONDANSETRON INJ 2 MG/ML 2 ML VIAL IV PRN
[2019-08-29] MEDS: MoRPHine SULFATE 4 MG/ML 1 ML CARP\\VIAL IV PRN
[2019-08-29 06:03] LABS: Basophils # (auto) 0.01 K/uL (0-0.2); Basophils % (auto) 0.1 %; Eosinophils # (auto) 0.02 K/uL (0-0.5); Eosinophils % (auto) 0.2 %; Hematocrit (blood only) 34.4 % (37-47); Immature Granulocytes # (auto) 0.02 K/uL (0.00-0.02); Immature Granulocytes % (auto) 0.2 %; Lymphocytes % (auto) 7.7 %; Mean Corpuscular Hemoglobin 29.5 pg (25-34); Mean Corpuscular Volume 92.2 fL (80-100); Mean Platelet Volume 9.4 fL (7.4-10.4); Monocytes # (auto) 0.46 K/uL (0.11-0.59); Neutrophils % (auto) 86.8 %; Platelet Count 264 K/uL (130-400); RDW Coefficient of Variation 13.2 % (11.5-14.5); RDW Standard Deviation 44.8 fL (36.4-46.3); Red Blood Count 3.73 M/uL (4.2-5.4); White Blood Count 9.11 K/uL (4.8-10.8)
[2019-08-29 06:41] LABS: Calcium 9.1 mg/dl (8.5-10.1); Creatinine Clr Calc Pharmacy 82.5 ml/min; Est GFR (African American) 104.8; Est GFR (Non-African American) 90.4
[2019-08-29] MEDS: ACETAMINOPHEN 325 MG TAB PO PRN (08:50)
[2019-08-29] MEDS: D5W AND 1/2NSS + 20MEQ KCL 20 MEQ/1,000 ML BAG IV SCH ×2 (08:51→20:48)
[2019-08-29] MEDS: ENOXAPARIN INJ 30 MG/0.3 ML SYR SQ SCH (08:51)
[2019-08-29] MEDS: PANTOprazole 40 MG in SYRINGE 0 ML IV SCH (10:32)
--- NOTE | 2019-08-29 13:06 | Surgery Progress Note ---
Date of Service August 29, 2019 Assessment & Plan (1) Cecal volvulus: POD # 2 s/p exploratory laparotomy right hemicolectomy -AVSS, leukocytosis resolved - adequate urine output - post op pain, better controlled - no return of bowel function yet Plan: Sips of clears OOB to chair/ambulate, continue PT/OT Continue PO Percocet and Tylenol prn pain, Continue IV Morphine as needed Continue IV Zofran SCDs, Incentive, Continue Lovenox repeat am labs Dr. Castaneda has seen and examined pt, agrees with above. Subjective feeling better today pain only with movement and better controlled no nausea today, no vomiting no flatus or bowel movement urinating without difficulty no chest pain/SOB worked with PT today Physical Exam Constitutional: WD/WN, vitals as above not ill appearing Gastrointestinal (Abdomen): Inspection/Auscultation: abdomen normal to inspection and normal bowel sounds (minimal bowel sounds); abdomen not distended Percussion/Palpation: + abdomen tender (generalized and at incision site) and abdomen soft; no guarding and abdomen not rigid Skin: no rashes, warm and dry + incision (clean/dry/intact with amber some dry drainage present) Psychiatric: A+Ox3, euthymic affect Results & Data Vital Signs (Past 12 Hours) Vital Signs Temp Pulse Resp BP Pulse Ox 08/29/19 07:18 36.9 C 99 H 16 147/73 H 97 Laboratory Results 08/29/19 08/29/19 Range/Units 05:33 05:33 WBC 9.11 (4.8-10.8) K/uL RBC 3.73 L (4.2-5.4) M/uL Hgb 11.0 L (12.0-16.0) g/dL Hct 34.4 L (37-47) % MCV 92.2 (80-100) fL MCH 29.5 (25-34) pg MCHC 32.0 (32-36) g/dL RDW Std Deviation 44.8 (36.4-46.3) fL RDW Coeff of Muna 13.2 (11.5-14.5) % Plt Count 264 (130-400) K/uL MPV 9.4 (7.4-10.4) fL Immature Gran % (Auto) 0.2 % Neut % (Auto) 86.8 % Lymph % (Auto) 7.7 % [place] % (Auto) 5.0 % Eos % (Auto) 0.2 % Baso % (Auto) 0.1 % Neut # (Auto) 7.90 H (1.4-6.5) K/uL Lymph # (Auto) 0.70 L (1.2-3.4) K/uL [place] # (Auto) 0.46 (0.11-0.59) K/uL Eos # (Auto) 0.02 (0-0.5) K/uL Baso # (Auto) 0.01 (0-0.2) K/uL Immature Gran # (Auto) 0.02 (0.00-0.02) K/uL Sodium 138 (136-145) mmol/L Potassium 4.0 (3.5-5.1) mmol/L Chloride 105 (98-107) mmol/L Carbon Dioxide 29 (21-32) mmol/L Anion Gap 4.0 (3-11) BUN 6 L (7-18) mg/dl Creatinine 0.64 (0.6-1.2) mg/dl Est Cr Clr Drug Dosing 82.5 ml/min Est GFR ( Amer) 104.8 Est GFR (Non-Af Amer) 90.4 BUN/Creatinine Ratio 9.0 L (10-20) Glucose 122 H (70-99) mg/dl Calcium 9.1 (8.5-10.1) mg/dl
[2019-08-30 06:07] LABS: Basophils # (auto) 0.02 K/uL (0-0.2); Basophils % (auto) 0.3 %; Eosinophils % (auto) 1.6 %; Hematocrit (blood only) 32.5 % (37-47); Hemoglobin 10.5 g/dL (12.0-16.0); Immature Granulocytes # (auto) 0.01 K/uL (0.00-0.02); Immature Granulocytes % (auto) 0.2 %; Lymphocytes # (auto) 0.74 K/uL (1.2-3.4); Lymphocytes % (auto) 11.8 %; Mean Corpuscular Hemoglobin 29.6 pg (25-34); Mean Corpuscular Hgb Conc 32.3 g/dL (32-36); Mean Corpuscular Volume 91.5 fL (80-100); Mean Platelet Volume 9.4 fL (7.4-10.4); Monocytes # (auto) 0.31 K/uL (0.11-0.59); Neutrophils # (auto) 5.08 K/uL (1.4-6.5); Neutrophils % (auto) 81.1 %; Platelet Count 268 K/uL (130-400); Red Blood Count 3.55 M/uL (4.2-5.4); White Blood Count 6.26 K/uL (4.8-10.8)
[2019-08-30 06:37] LABS: BUN Creatinine Ratio 12.2 (10-20); Creatinine Clr Calc Pharmacy 82.5 ml/min; Est GFR (African American) 104.8; Est GFR (Non-African American) 90.4; Potassium 3.7 mmol/L (3.5-5.1)
[2019-08-30] MEDS: ENOXAPARIN INJ 30 MG/0.3 ML SYR SQ SCH (07:34)
--- NOTE | 2019-08-30 08:10 | Surgery Progress Note ---
Date of Service August 30, 2019 Assessment & Plan (1) Cecal volvulus: Postoperative day #3 status post right colectomy for cecal volvulus. Peristalsis is returning slowly We will try to stimulate rectal evacuation with suppository Denies nausea Can advance to full liquid diet Encouraged ambulation Subjective Postoperative day #3 status post right hemicolectomy for cecal volvulus Has not passed flatus or had a bowel movement but denies nausea Abdominal discomfort is decreasing Ambulated to chair yesterday Tolerated clear liquid diet Physical Exam Gastrointestinal (Abdomen): Inspection/Auscultation: + abdominal surgical incision (Clean, dry and intact); abdomen not distended Percussion/Palpation: + abdomen tender (Incisional only) and abdomen soft Results & Data Vital Signs (Past 12 Hours) Vital Signs Temp Pulse Resp BP BP Pulse Ox 08/30/19 07:44 36.5 C 74 18 133/78 96 08/29/19 23:07 37.2 C 84 16 142/79 H 95 Laboratory Results 08/30/19 08/30/19 Range/Units 05:36 05:36 WBC 6.26 (4.8-10.8) K/uL RBC 3.55 L (4.2-5.4) M/uL Hgb 10.5 L (12.0-16.0) g/dL Hct 32.5 L (37-47) % MCV 91.5 (80-100) fL MCH 29.6 (25-34) pg MCHC 32.3 (32-36) g/dL RDW Std Deviation 44.0 (36.4-46.3) fL RDW Coeff of Muna 13.0 (11.5-14.5) % Plt Count 268 (130-400) K/uL MPV 9.4 (7.4-10.4) fL Immature Gran % (Auto) 0.2 % Neut % (Auto) 81.1 % Lymph % (Auto) 11.8 % [place] % (Auto) 5.0 % Eos % (Auto) 1.6 % Baso % (Auto) 0.3 % Neut # (Auto) 5.08 (1.4-6.5) K/uL Lymph # (Auto) 0.74 L (1.2-3.4) K/uL [place] # (Auto) 0.31 (0.11-0.59) K/uL Eos # (Auto) 0.10 (0-0.5) K/uL Baso # (Auto) 0.02 (0-0.2) K/uL Immature Gran # (Auto) 0.01 (0.00-0.02) K/uL Sodium 141 (136-145) mmol/L Potassium 3.7 (3.5-5.1) mmol/L Chloride 109 H (98-107) mmol/L Carbon Dioxide 29 (21-32) mmol/L Anion Gap 3.0 (3-11) BUN 8 (7-18) mg/dl Creatinine 0.64 (0.6-1.2) mg/dl Est Cr Clr Drug Dosing 82.5 ml/min Est GFR ( Amer) 104.8 Est GFR (Non-Af Amer) 90.4 BUN/Creatinine Ratio 12.2 (10-20) Glucose 113 H (70-99) mg/dl Calcium 9.0 (8.5-10.1) mg/dl
[2019-08-30] MEDS ORDERED: bisacodyL 10 MG SUPP PR ONE (08:11)
[2019-08-30] MEDS: D5W AND 1/2NSS + 20MEQ KCL 20 MEQ/1,000 ML BAG IV SCH ×2 (09:24→20:52)
[2019-08-30] MEDS: PANTOprazole 40 MG in SYRINGE 0 ML IV SCH (10:34)
[2019-08-30] MEDS: ACETAMINOPHEN 325 MG TAB PO PRN (20:52)
--- NOTE | 2019-08-31 07:43 | Surgery Progress Note ---
Date of Service August 31, 2019 Assessment & Plan (1) Cecal volvulus: Postoperative day number 4 status post right colectomy for cecal volvulus Peristalsis has returned Tolerated full liquid diet will advance to low fiber diet Encouraged ambulation If continues to progress can most likely be discharged tomorrow Subjective Postoperative day #4 status post right colectomy for cecal volvulus Doing well Bowels moving Tolerated full liquid diet without nausea and vomiting Ambulating Physical Exam Gastrointestinal (Abdomen): Inspection/Auscultation: normal bowel sounds and + abdominal surgical incision (Clean, dry and intact); abdomen not distended Percussion/Palpation: + abdomen tender (Incisional only) and abdomen soft Results & Data Vital Signs (Past 12 Hours) Vital Signs Temp Pulse Resp BP Pulse Ox 08/30/19 23:15 37.0 C 79 16 135/73 97
[2019-08-31] MEDS: ENOXAPARIN INJ 30 MG/0.3 ML SYR SQ SCH (08:26)
[2019-08-31] MEDS: D5W AND 1/2NSS + 20MEQ KCL 20 MEQ/1,000 ML BAG IV SCH ×2 (09:28→22:17)
[2019-08-31] MEDS: PANTOprazole 40 MG in SYRINGE 0 ML IV SCH (10:26)
[2019-08-31] MEDS ORDERED: SIMETHICONE 80 MG CHEW PO PRN (20:56)
[2019-08-31] MEDS: ACETAMINOPHEN 325 MG TAB PO PRN (21:25)
--- NOTE | 2019-09-01 08:25 | Surgery Progress Note ---
Date of Service September 01, 2019 Assessment & Plan (1) Cecal volvulus: Postoperative day number 5 status post right colectomy for cecal volvulus avss pain controlled Peristalsis has returned Tolerated low fiber diet Plan: Discharge home, discharge instructions reviewed f/u surgical office in about 10 days for staple removal and postop check Tylenol/Ibuprofen prn pain at home Dr. Castandea has seen and examined pt, agrees with above. Subjective feeling good passed alot of gas this morning, bowel movement yesterday pain controlled ambulating hallway tolerated low fiber diet Physical Exam Constitutional: WD/WN, vitals as above no acute distress Gastrointestinal (Abdomen): Inspection/Auscultation: abdomen normal to inspection; abdomen not distended Percussion/Palpation: + abdomen tender (at incision site) and abdomen soft; no guarding and abdomen not rigid Skin: no rashes, warm and dry + incision (amber intact, ecchymosis surrounding incision) Psychiatric: A+Ox3, euthymic affect Results & Data Vital Signs (Past 12 Hours) Vital Signs Temp Pulse Resp BP Pulse Ox 09/01/19 07:30 37.0 C 78 18 126/79 98 08/31/19 23:41 37.3 C 89 16 126/64 96 Laboratory Results PATHOLOGY: FINAL DIAGNOSIS COLON, RIGHT, HEMICOLECTOMY: - THIN AND ATTENUATED COLONIC MUCOSA WITH LOSS OF NORMAL RUGAL FOLDS - SCATTERED SUBMUCOSAL HEMORRHAGES - UNREMARKABLE APPENDIX AND ILEAL TISSUE - NEGATIVE FOR DYSPLASIA AND MALIGNANCY
[2019-09-01] MEDS: ENOXAPARIN INJ 30 MG/0.3 ML SYR SQ SCH (09:14)
--- NOTE | 2019-09-11 08:02 | Discharge Summary ---
Date of Service September 11, 2019 Admission HPI Per Admitting Provider This is a 68-year-old female who presented to the emergency room after the fairly acute onset of abdominal pain followed by nausea and vomiting. The patient states that she has a history of gastroparesis and yesterday evening had some mild epigastric discomfort. She is on an H2 luis chronically. At 11 PM last night she developed rather acute onset of more severe sharp abdominal pain. This was followed by multiple episodes of vomiting. She had diaphoresis with the vomiting. The pain persisted and she was brought to the emergency room by ambulance. While here she continued to have severe abdominal pain generalized throughout. There was no place to predominated. The nausea persisted. She normally has no issues with passing her bowels. She had no melena or hematochezia. She is never had pain like this before. Movement exacerbates the pain. She has had no dysuria or hematuria. CT scan of the abdomen and pelvis revealed cecal volvulus. Admission Exam Per Admitting Provider Constitutional: + ill appearing Neck: trachea midline Respiratory: normal respiratory effort, lungs clear to auscultation Cardiovascular: Rate/Rhythm: regular rate and regular rhythm Gastrointestinal (Abdomen): Inspection/Auscultation: + abdomen distended (Mild) and normal bowel sounds Percussion/Palpation: + abdomen tender (Througho ut to moderate palpation) Abdomen is firm but not rigid Skin: no rashes, warm and dry Lymphatic: no cervical lymphadenopathy Principal Diagnosis Cecal volvulus Discharge Exam Constitutional no acute distress Respiratory normal respiratory effort, lungs clear to auscultation Cardiovascular Rate/Rhythm: regular rate and regular rhythm Gastrointestinal (Abdomen) Inspection/Auscultation: normal bowel sounds and + abdominal surgical incision (Clean, dry and intact); abdomen not distended Discharge Data Allergies Allergy/AdvReac Type Severity Reaction Status Date / Time Penicillins Allergy Mild Rash Unverified 08/27/19 02:42 sulfamethoxazole Allergy Hallucinati Unverified 08/27/19 02:42 [From Bactrim] ng trimethoprim [From Bactrim] Allergy Hallucinati Unverified 08/27/19 02:42 ng Consultations 08/27/19 02:58 Consult General Surgery Stat Procedures Performed Operation Date: 08/27/19 05:30 Actual Procedures p Bowel Resection(Not Applicable) - Mahamed Castaneda MD Ordered Studies 08/27/19 01:55 CT abd pelvis IV con only Urgent Hospital Course (1) Cecal volvulus: The patient was admitted and taken to the operating room where a cecal volvulus was identified. Findings during the time of surgery included a redundant colon with an elongated mesentery of the right colon. Extended right colon resection over to the right branch of the middle colic was performed without difficulty. The NG tube was removed on postoperative day #1 and her bowel function returned after the administration of a suppository and postoperative day #3 and she was having flatus and bowel movements at least daily after that time. She was tolerating a regular diet without nausea or vomiting. The incision was clean and dry. There was no drainage or erythema. Her discharge H&H was 10.5 and 32.5. Her hypokalemia had resolved with potassium administration and dietary replacement Total Time Total Time Spent Total Time Spent (In Minutes): 15 Discharge Plan Discharge Items Patient Disposition: Home - Self-Care Reason For Visit: CECAL VOLVULUS Discharge Diagnosis: Same Activity: Per Instructions section Non-emergency contact: Surgeon Call non-emergency contact if: you have any medication questions, your pain is not controlled, your pain is worsening, your pain is concerning for you, you have a fever, your temperature is above 101, your wound has increased redness, your wound has increased drainage and your wound pain has increased Follow-up/Referrals: Marguerite Gonzalez DO [Primary Care Provider] - Diet: Low Fiber Addtl Attending Provider Instructions: Post-Surgical ~Discharge Instructions Activity Recommendations: - lifting limitation: (10 pounds for 6 weeks), - exercise/sex/sports limit: (nonstrenuous for 6 weeks or until cleared by surgeon), - driving or machine use limit: (none for 1 week or until you are pain free), - Shower/bathe limit: (may shower) Diet: - Low fiber diet for 2-4 weeks SPECIAL CARE INSTRUCTIONS: - May shower. Let water run over area and pat dry. - Surgical amber will be removed in office. - Call the surgeon's office with any questions or concerns - - (ex. temperature higher than 101 degrees F, excessive bleeding or pain). MEDICATIONS: - Resume previous medications unless instructed otherwise by your surgeon. - Ibuprofen 600 mg every 6 hours as needed (take with food) - Tylenol 650 mg every 6 hours as needed FOLLOW UP VISIT: - Please call the office to schedule a follow-up appointment week of September [address] Castaneda for staple removal. Office number Pending Studies at Discharge: No Stand-Alone Forms: My [facility], Smoking Cessation Medications and DC Order Prescriptions: Continued Linzess 72 mcg Capsule 72 mcg PO DAILY RF: 0 omeprazole 20 mg Capsule,Delayed Release(Dr/Ec) 20 mg PO DAILY RF: 0 Discharge Orders: Discharge Order (Routine); Ordered 09/01/19 Ordered By: Nohelia Gao Admission Data Admit Date/Time: 08/27/19 09:28 Attending Provider: Mahamed Castaneda Admit Provider: Mahamed Castaneda Primary Care Provider: Marguerite Gonzalez Other Providers: Mahamed Castaneda Other Interventions: Discharge Summary Assessment (RN) Last Done: 09/01/19 09:17 DC Date/Time DO NOT enter until pt leaves facility: 09/01/19 10:30
== END 2019-09-01 10:30 | disposition home or self-care (01) | DRG 331 ==
LOC: ED 01:51 → OR 05:28 → 3W 09:28
DX: Z80.8 Family history of malignant neoplasm of other organs or systems; Z98.41 Cataract extraction status, right eye; K56.2 Volvulus; Z88.0 Allergy status to penicillin; Z98.42 Cataract extraction status, left eye